=== PATIENT | female | born 1990 | race Caucasian/White ===

== ENCOUNTER 2019-05-29 10:57 | Emergency (ER) | payer OTHER ==
[~2019-05-29] VITALS: Ht 160 cm; Wt 54.3 kg
[~2019-05-29 10:57] MED LIST: ACET-2047 PO; IBUP-1561 PO; ONDA4TAB35 PO; ONDA4TAB8 PO
[2019-05-29 11:19] VITALS: BP 108/64; PULSE 73; RESP 18; Ht 160 cm; Wt 54.3 kg
[2019-05-29] MEDS ORDERED: SOD CHLORIDE 0.9% 1,000 ML IV STA (12:27)
[2019-05-29] MEDS ORDERED: LIDOCAINE/MYLANTA 40 ML BTL PO STA (12:27)
[2019-05-29] MEDS ORDERED: BELLADONNA/PHENOBARBITAL TAB PO STA (12:27)
[2019-05-29] MEDS ORDERED: KETOROLAC 15 MG INJ IV STA (12:27)
[2019-05-29] MEDS ORDERED: ONDANSETRON 4 MG INJ IV STA (12:27)
== END 2019-05-29 13:50 | disposition home or self-care (01) ==
LOC: FTE 10:57
DX: R11.10 Vomiting, unspecified (principal)
CPT/HCPCS: 36415; 80053; 81003; 81025; 83690; 85025; 96361; 96374; 96375; J1885; J2405; J7030; Z7502; Z7610